=== PATIENT | female | born 1985 | race Caucasian/White ===

== ENCOUNTER 2022-06-29 20:04 | Emergency (ER) | payer OTHER, SELFPAY ==
[~2022-06-29] VITALS: Ht 162.6 cm; Wt 90.0 kg
[2022-06-29 20:25] VITALS: BP 121/70
== END 2022-06-29 22:12 | disposition home or self-care (01) ==
LOC: ER 20:05
DX: J06.9 Acute upper respiratory infection, unspecified (principal); Z20.822 Contact with and (suspected) exposure to COVID-19; K21.9 Gastro-esophageal reflux disease without esophagitis
CPT/HCPCS: 87635; 99283; C9803